=== PATIENT | female | born 1995 | race Caucasian/White ===

== ENCOUNTER 2018-08-21 20:42 | Emergency (ER) | payer SELFPAY ==
[2018-08-21 22:10] VITALS: BP 116/76
[2018-08-21 23:01] LABS: Hematocrit 41.6 % (30.3-42.9); Lymphocytes % (Auto) 31.8 % (13.4-35.0); Mean Corpuscular HGB Conc 34 % (30-34); Mean Corpuscular Hemoglobin 30 pg (28-32); Mean Corpuscular Volume 89 fl (79-97); Mean Platelet Volume 7.2 fl (6-12); Monocytes % (Auto) 6.5 % (0.0-7.3); Platelet Count 393 K/mm3 (140-440); Red Blood Count 4.67 M/mm3 (3.65-5.03); Red Cell Distribution Width 14.7 % (13.2-15.2)
[2018-08-21 23:02] LABS: Basophils % (Auto) 0.6 % (0.0-1.8); Eosinophils % (Auto) 0.3 % (0.0-4.3); Lymphocytes # (Auto) 1.8 K/mm3 (1.2-5.4); Monocytes # (Auto) 0.4 K/mm3 (0.0-0.8)
[2018-08-21 23:05] LABS: Alanine Aminotransferase 15 units/L (7-56); Albumin 4.7 g/dL (3.9-5); BUN/Creatinine Ratio 20; Blood Urea Nitrogen 12 mg/dL (7-17); Calcium 9.4 mg/dL (8.4-10.2); Hemolysis Index 8
== END 2018-08-22 01:30 | disposition left against medical advice (07) ==
LOC: ED 20:42
DX: R42 Dizziness and giddiness (principal); Z53.21 Procedure and treatment not carried out due to patient leaving prior to being seen by health care provider
CPT/HCPCS: 36415; 80053; 84703; 85025; 93005; 93010

== ENCOUNTER 2019-08-07 22:32 | Outpatient (CLI) | payer MEDICAID ==
[2019-08-07] MEDS ORDERED: LACTATED RINGERS 1,000 ML IV ONE (22:44)
[2019-08-07 23:31] VITALS: BP 133/82
--- NOTE | 2019-08-08 01:03 | Ultrasound Report ---
ULTRASOUND OBSTETRIC LIMITED ULTRASOUND BIOPHYSICAL PROFILE INDICATION / CLINICAL INFORMATION: Premature leakage of fluid. Evaluate amniotic fluid index. COMPARISON: OB ultrasound from 07/20/2019. FINDINGS: BREATHING MOVEMENT = 2 GROSS BODY MOVEMENT = 2 TONE = 2 QUALITATIVE AMNIOTIC FLUID VOLUME = 2 TOTAL BIOPHYSICAL SCORE = 8/8 AMNIOTIC FLUID INDEX (cm) = 13.5 PRESENTATION: Cephalic. HEART RATE (beats per minute): 137 ADDITIONAL FINDINGS: None. IMPRESSION: 1. Biophysical Score = 8/8 2. Normal amniotic fluid index of 13.5 cm. Signer Name: Willis Callejas MD Signed: 08/08/2019 12:59 AM Workstation Name: [id number]
== END 2019-08-08 00:13 | disposition home or self-care (01) ==
LOC: TRG 22:32
PROVIDERS: ATTEND Obstetrics & Gynecology
DX: O42.913 Preterm premature rupture of membranes, unspecified as to length of time between rupture and onset of labor, third trimester (principal); O62.9 Abnormality of forces of labor, unspecified; Z3A.36 36 weeks gestation of pregnancy
CPT/HCPCS: 59025; 76815; 76819; 96360; J7120

== ENCOUNTER 2019-08-28 02:53 | Inpatient (IN) | payer MEDICAID ==
[2019-08-28] MEDS ORDERED: ePHEDrine SULFATE 50 MG/1 ML INJ IV PRN ×2 (03:19→05:54)
[2019-08-28] MEDS ORDERED: TERBUTALINE 1 MG/1 ML INJ IVP PRN (03:19)
[2019-08-28] MEDS ORDERED: TERBUTALINE 1 MG/1 ML INJ SUB-Q PRN (03:19)
[2019-08-28] MEDS ORDERED: BUTORPHANOL 2 MG/1 ML INJ IV PRN (03:19)
[2019-08-28] MEDS ORDERED: MINERAL OIL 30 ML ORAL LIQD PO PRN (03:19)
[2019-08-28] MEDS ORDERED: LIDOCAINE (2%) 20 MG/1 ML VIAL 20 ML MDV INFILTRATI ONE (03:19)
[2019-08-28] MEDS ORDERED: AMPICILLIN/NS 2 GM/100 ML 2 GM/100 ML BAG IV ONE (03:19)
[2019-08-28] MEDS ORDERED: OXYTOCIN 20 UNIT/1000ML DRIP 20 UNITS/1,000 ML BAG IV SCH ×2 (04:00→16:38)
[2019-08-28 04:06] LABS: Hematocrit 33.2 % (30.3-42.9); Hemoglobin 10.6 gm/dl (10.1-14.3); Mean Corpuscular HGB Conc 32 % (30-34); Mean Corpuscular Volume 78 fl (79-97); Platelet Count 364 K/mm3 (140-440); Red Blood Count 4.24 M/mm3 (3.65-5.03); Red Cell Distribution Width 15.3 % (13.2-15.2)
[2019-08-28] MEDS: LACTATED RINGERS 1,000 ML IV SCH ×2 (04:21→06:12)
[2019-08-28] MEDS ORDERED: NALOXONE 2 MG/2 ML INJ IV PRN (05:54)
--- NOTE | 2019-08-28 05:56 | Anesthesia Consultation ---
Anesthesia Consult and Med Hx Date of service: 08/28/19 - Airway Anesthetic Teeth Evaluation: Good ROM Head & Neck: Adequate Mental/Hyoid Distance: Adequate Mallampati Class: Class II Intubation Access Assessment: Probably Good - Pulmonary Exam CTA: Yes - Cardiac Exam Cardiac Exam: RRR - Pre-Operative Health Status ASA Pre-Surgery Classification: ASA2 Proposed Anesthetic Plan: Epidural - Pulmonary Hx Asthma: No COPD: No Hx Pneumonia: No - Cardiovascular System Hx Hypertension: No - Central Nervous System Hx Seizures: Yes (Since 12y/o on Keppra currently) Hx Psychiatric Problems: No - Endocrine Hx Renal Disease: No Hx End Stage Renal Disease: No Hx Hypothyroidism: No Hx Hyperthyroidism: No - Hematic Hx Anemia: Yes Hx Sickle Cell Disease: No - Other Systems Hx Alcohol Use: Yes
[2019-08-28] MEDS ORDERED: fentaNYL-BUPIV 2 MCG/ML-0.125% 200 MCG/100 ML BAG EPIDURAL SCH (06:00)
[2019-08-28] MEDS ORDERED: AMPICILLIN/NS 1 GM/50 ML 1 GM/50 ML BAG IV SCH (07:30)
[2019-08-28] MEDS ORDERED: OXYTOCIN DRIP 30 UNITS/500 ML BAG IV SCH (08:00)
[2019-08-28] MEDS ORDERED: SODIUM CHLORIDE 0.9% 500 ML 500 ML ONE (08:54)
--- NOTE | 2019-08-28 09:41 | History and Physical Report ---
History of Present Illness Date of examination: 08/28/19 Date of admission: 08/28/19 03:47 Chief complaint: contractions History of present illness: Pt is a 24 year old -AMrican SILVIA 08/30/19 at 39w5d who presents with regular painful contractions and cervical change from 1 to 3 cm during her evaluation in triage. She denies vaginal bleeding or leakage of fluid. She has had care at [facility] since 12 wks complicated by seizure disorder on Keppra 100mg daily, genital herpes without lesion or prodrome, Cystitis s/p treatment with negative test of cure, carpal tunnel syndrome s/p wrist splint on 06/06/19, trichmonoas s/p treatment. She is GBS positive. 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: herpes, trichomonas Family/Genetic History: none Social history: no significant social history - Obstetrical History Expected Date of Delivery: 08/30/19 Actual Gestation: 39 Week(s) 5 Day(s) : 2 Para: 0 Hx # Term Pregnancies: 0 Number of Pregnancies: 0 Spontaneous Abortions: 1 Induced : 0 Medications and Allergies Allergies Allergy/AdvReac Type Severity Reaction Status Date / Time No Known Allergies Allergy Verified 01/21/19 07:21 Home Medications Medication Instructions Recorded Confirmed Last Taken Type Folic Acid [Folvite] 1 tab PO DAILY 07/20/19 08/07/19 08/06/19 History Vit-Fe Fumar-FA [ 1 tab PO DAILY 07/20/19 08/07/19 08/06/19 History Vitamin] levETIRAcetam [Keppra TAB] 1 tab PO BID 07/20/19 08/07/19 08/07/19 History Active Meds: Active Medications Butorphanol Tartrate (Stadol) 2 mg IV Q2H PRN PRN Reason: Pain , Severe (7-10) Ephedrine Sulfate (Ephedrine Sulfate) 10 mg IV Q2M PRN PRN Reason: Hypotension Oxytocin/Sodium Chloride (Pitocin/Ns 20 Unit/1000ml Drip) 20 units in 1,000 mls @ 125 mls/hr IV DIRECT KALYAN Lactated Ringer's (Lactated Ringers) 1,000 mls @ 125 mls/hr IV DIRECT KALYAN Last Admin: 10/28/19 06:12 Dose: 125 mls/hr Documented by: Ampicillin Sodium (Ampicillin/Ns 1 Gm/50 Ml) 1 gm in 50 mls @ 100 mls/hr IV Q4HR KALYAN; Protocol Last Admin: 08/28/19 07:54 Dose: 100 mls/hr Documented by: Fentanyl/Bupivacaine/Sodium Chlor (Fentanyl-Bupiv 2 Mcg/Ml-0.125%) 200 mcg in 100 mls @ 12 mls/hr EPIDURAL TITR KALYAN; Protocol Last Admin: 08/28/19 06:45 Dose: 12 mls/hr Documented by: Oxytocin/Sodium Chloride (Pitocin/Ns 30 Unit/500ml) 30 units in 500 mls @ 4 mls/hr IV TITR KALYAN; Protocol Last Admin: 08/28/19 07:50 Dose: 4 ml/hr, 4 mls/hr Documented by: Sodium Chloride (Nacl 0.9% 1000 Ml) 1,000 mls @ 0 mls/hr VG DIRECT KALYAN Mineral Oil (Mineral Oil) 30 ml PO QHS PRN PRN Reason: Constipation Naloxone HCl (Naloxone) 0.2 mg IV Q5M PRN PRN Reason: Respiratory sedation Terbutaline Sulfate (Brethine) 0.25 mg SUB-Q ONCE PRN PRN Reason: Hyperstimulation/Hypertonicity Terbutaline Sulfate (Brethine) 0.25 mg IVP ONCE PRN PRN Reason: Hyperstimulation/Hypertonicity Review of Systems All systems: negative - Vital Signs Vital signs: Vital Signs Pulse BP 82 127/85 08/28/19 03:01 08/28/19 03:01 Temp Pulse Resp BP Pulse Ox 97.9 F 65 112/69 100 08/28/19 07:00 08/28/19 09:36 08/28/19 09:26 08/28/19 09:36 - Physical Exam Breasts: Positive: deferred Cardiovascular: Regular rate Lungs: Positive: Clear to auscultation Abdomen: Positive: soft (gravid ) Genitourinary (Female): Positive: normal external genitalia Uterus: Positive: enlarged (gravid ) Extremities: Positive: edema (trace) - Obstetrical FHR: category 2 Uterine Contraction Monitor Mode: External Cervical Dilatation: 4.5 Cervical Effacement Percentage: 100 station: -1 Uterine Contraction Pattern: Irregular Uterine Tone Measurement Phase: Resting Uterine Contraction Intensity: Moderate Results Result Diagrams: 08/28/19 03:47 Abnormal lab results 08/28/19 Range/Units 03:47 MCV 78 L (79-97) fl MCH 25 L (28-32) pg RDW 15.3 H (13.2-15.2) % All other labs normal. Assessment and Plan A: IUP at 39w5d Latent Labor Seizure Disorder H/o Trichomonas, treated GBS positive status P: Admit to labor and delivery AROM- clear fluid GBS prophylaxis with Ampicillin Routine intrapartum care
[2019-08-28] MEDS ORDERED: SODIUM CHLORIDE 0.9% 1000 ML 1,000 ML VG SCH (10:00)
--- NOTE | 2019-08-28 10:53 | Event Note ---
Date: 08/28/19 Pt withmultiple varoiable decels after AROM. Resuscitation given including oxygen per face mask, IV bolus, left laternal position and pitocin discontinued. IUPC placed and amnioinfusion started wtih resolution of variable decelerations. Closely monitor maternal and status. Hold Pitocin for 15 minutes , then restart.
--- NOTE | 2019-08-28 14:26 | Procedure Note ---
OB Delivery Note - Delivery Date of Delivery: 08/28/19 Surgeon: INOCENCIO AREVALO Estimated blood loss: other (400 mL) - Vaginal Delivery presentation: vertex Delivery position: OA Intrapartum events: PROM->1hr before delivery, meconium, decreased FHT variability, mult. late decelerations, mult.variable deceleratio Delivery induction: none Delivery augmentation: rupture of membranes, pitocin Delivery monitor: external FHT, internal uterine Route of delivery: vacuum extraction Indicators for instrumentation: nonreassuring FHR tracing Delivery placenta: spontaneous Delivery cord: nuchal cord, 3 umbilical vessels Episiotomy: midline Delivery laceration: vaginal side wall, other (Bilateral periurethral ) Delivery repair: vicryl Anesthesia: epidural Delivery comments: Pt progressed to complete/complete/+3 and head noted to be in DANNA position. FHTs decelerating to 90s with each contraction with delayed return to baseline. Midline episiotomy created. Kiwi vacuum placed and head delivered with 3 pulls, 1 pop corby. Nuchal cord doubly clamped and cut. Shoulders and body delivered without difficulty then handed to NICU and repsiratory staff in attendance. Terminal meconium. Cord blood collected. Placenta delivered spontaneously (3VC, intact). Vagina and perineum explored. Midline episiotomy repaired with 2-0 Vicryl in a standard fashion. Bilateral periurethral noted. Right side hemostatic. Left side repaired with 3-0 Vicryl in a running fashion. Vaginal sidewall laceration on left side repaired with figure of eights of 3-0 Vicryl. Hemostasis noted. EBL 400 mL. - A at 1 minute: 8 at 5 minutes: 9 Infant Gender: Female (2855g (6lb 5oz) at 1336 pm)
[2019-08-28] MEDS ORDERED: ACETAMINOPHEN 325 MG TAB PO PRN (16:38)
[2019-08-28] MEDS ORDERED: MAGNESIUM HYDROXIDE (MOM) ORAL LIQD UDC PO PRN (16:38)
[2019-08-28] MEDS ORDERED: LANOLIN/ZINC/DIMETHICONE (LANSINOH) 7 GM TP PRN ×2 (16:38)
[2019-08-28] MEDS ORDERED: WITCH HAZEL/ GLYCERIN PAD TP PRN (16:38)
[2019-08-28] MEDS ORDERED: BISACODYL 10 MG RECT SUPP PR PRN (16:38)
[2019-08-28] MEDS ORDERED: PROMETHAZINE 25 MG TAB PO PRN (16:38)
[2019-08-28] MEDS ORDERED: ONDANSETRON 4 MG/2 ML INJ IV PRN (16:38)
[2019-08-28] MEDS ORDERED: PROMETHAZINE 25 MG RECT SUPP PR PRN (16:38)
[2019-08-28] MEDS ORDERED: BENZOCAINE/MENTHOL 20/0.5% TOP SPRAY 56 GM TP PRN (16:38)
[2019-08-28] MEDS ORDERED: diphenhydrAMINE 25 MG CAP PO PRN (16:38)
[2019-08-28] MEDS: IBUPROFEN 600 MG TAB PO SCH (18:05)
[2019-08-28] MEDS: FERROUS SULFATE 325 MG TAB PO SCH (22:05)
[2019-08-29] MEDS: IBUPROFEN 600 MG TAB PO SCH ×4 (00:03→17:58)
[2019-08-29 03:21] LABS: Hematocrit 29.8 % (30.3-42.9); Hemoglobin 9.5 gm/dl (10.1-14.3)
[2019-08-29] MEDS ORDERED: TETANUS,DIPH,PERTUSS(ACELL) VACCINE 0.5 ML SYRINGE IM ONE (06:00)
[2019-08-29] MEDS ORDERED: MEASLES, MUMPS & RUBELLA 12,500 UNIT/0.5 ML VACCINE SUB-Q ONE (06:00)
--- NOTE | 2019-08-29 08:52 | Progress Note ---
Assessment and Plan A: PPD 1 s/p at term, Asymptomatic anemia, Seizure Disorder P: Routine care. Arise Vernon. Subjective - Subjective Date of service: 08/30/19 Principal diagnosis: s/p at term, Seizure Disorder Interval history: Pt reports cramping with breast feeding. Otherwise doing well. Patient reports: appetite normal, voiding normally, pain well controlled, no dizzy ambulation : doing well Objective - Vital Signs Latest vital signs: Vital Signs Temp Pulse Resp BP BP Pulse Ox 08/29/19 08:18 97.8 F 73 18 104/70 08/29/19 01:31 98.2 F 90 18 112/72 99 08/28/19 21:31 98.5 F 90 20 117/71 99 08/28/19 16:05 98.3 F 83 18 117/74 100 08/28/19 15:45 98.0 F 97 H 115/60 08/28/19 15:44 107 H 141/58 08/28/19 15:33 90 121/76 08/28/19 15:23 93 H 121/73 08/28/19 15:13 91 H 122/75 08/28/19 15:03 81 122/74 08/28/19 14:43 77 130/83 08/28/19 14:26 81 119/70 08/28/19 14:00 98.4 F 08/28/19 13:56 100 H 121/70 08/28/19 13:26 83 121/59 08/28/19 13:12 78 100 08/28/19 13:07 86 100 08/28/19 13:05 98.4 F 08/28/19 13:02 85 99 08/28/19 12:57 83 99 08/28/19 12:56 76 116/76 08/28/19 12:52 83 99 08/28/19 12:47 81 99 08/28/19 12:42 85 98 08/28/19 12:37 75 98 08/28/19 12:32 74 100 08/28/19 12:27 86 113/75 98 08/28/19 12:22 81 97 08/28/19 12:17 63 99 08/28/19 12:12 59 L 100 08/28/19 12:07 70 100 08/28/19 12:02 64 100 08/28/19 11:57 56 L 115/66 100 08/28/19 11:52 59 L 100 08/28/19 11:47 62 100 08/28/19 11:42 68 97 08/28/19 11:37 66 97 08/28/19 11:32 63 97 08/28/19 11:27 69 98 08/28/19 11:26 67 119/74 08/28/19 11:22 76 98 08/28/19 11:17 73 100 08/28/19 11:12 77 99 08/28/19 11:07 91 H 98 08/28/19 11:02 76 99 08/28/19 10:57 73 98 08/28/19 10:56 78 112/66 08/28/19 10:52 72 98 08/28/19 10:47 74 99 08/28/19 10:42 80 98 08/28/19 10:37 81 98 08/28/19 10:32 73 99 08/28/19 10:27 77 98 08/28/19 10:26 85 127/89 08/28/19 10:22 75 99 08/28/19 10:17 72 99 08/28/19 10:12 73 98 08/28/19 10:07 60 100 08/28/19 10:02 59 L 100 08/28/19 09:57 60 110/58 100 08/28/19 09:51 58 L 100 08/28/19 09:46 60 100 08/28/19 09:41 61 100 08/28/19 09:36 65 100 08/28/19 09:31 64 100 08/28/19 09:26 60 112/69 100 08/28/19 09:21 61 100 08/28/19 09:16 63 100 08/28/19 09:11 60 100 08/28/19 09:06 63 100 08/28/19 09:01 61 100 08/28/19 08:57 71 120/66 08/28/19 08:56 69 100 Intake and Output 08/28/19 08/29/19 08/29/19 22:59 06:59 14:59 Intake Total 360 600 480 Output Total 500 500 Balance -140 100 480 Intake: Oral 600 480 Intake, Free Water 360 Output: Urine 500 500 Void 500 500 Other: Total, Intake Amount 240 480 Total, Output Amount 500 500 - Exam Breasts: Present: deferred Cardiovascular: Present: Regular rate Lungs: Present: Clear to auscultation Abdomen: Present: soft Uterus: Present: fundal height at umbilicus Extremities: Present: edema (trace) - Labs Labs: Abnormal lab results 08/29/19 Range/Units 03:00 Hgb 9.5 L (10.1-14.3) gm/dl Hct 29.8 L (30.3-42.9) %
[2019-08-29] MEDS: HYDROcodone/ACETAMINOPHEN 5-325 MG TAB PO PRN ×2 (09:10→19:16)
[2019-08-29] MEDS: FERROUS SULFATE 325 MG TAB PO SCH (09:11)
[2019-08-29] MEDS ORDERED: metroNIDAZOLE 500 MG TAB PO ONE (11:00)
[2019-08-29] MEDS: levETIRAcetam 500 MG TAB PO SCH ×2 (12:01→23:59)
[2019-08-29] MEDS ORDERED: levETIRAcetam 500 MG/5 ML ORAL LIQD PO SCH (22:00)
[2019-08-30] MEDS: IBUPROFEN 600 MG TAB PO SCH ×2 (00:01→06:10)
[2019-08-30] MEDS: FERROUS SULFATE 325 MG TAB PO SCH (00:02)
--- NOTE | 2019-08-30 05:21 | Event Note ---
Date: 08/30/19 Late entry. Vaginal culture from the office returned with trichomonas. Flagyl 2 gram PO ordered.
--- NOTE | 2019-08-30 08:38 | Progress Note ---
Assessment and Plan PPD2 s/p Seizure disorder Vital signs stable Acute on chronic anemia- iron supplementation Discharge to home today Subjective - Subjective Date of service: 08/30/19 Principal diagnosis: s/p at term, Seizure Disorder Interval history: PPD2 s/p at term. Patient reports: appetite normal, voiding normally, pain well controlled, ambulating normally [place]: doing well, nursing well (nipples sore), bottle feeding (both) Objective - Vital Signs Latest vital signs: Vital Signs Temp Pulse Resp BP 08/30/19 00:00 98.8 F 18 L 18 117/71 08/29/19 16:20 97.9 F 80 18 110/59 08/29/19 12:26 97.6 F 69 18 117/80 Intake and Output 08/29/19 08/30/19 08/30/19 23:59 07:59 15:59 Intake Total 480 300 Balance 480 300 Intake: Oral 480 Intake, Free Water 300 Other: Total, Intake Amount 480 # Voids Void 1 - Exam Lungs: Present: Normal air movement Abdomen: Present: normal appearance, soft Uterus: Present: normal, firm, fundal height at umbilicus Extremities: Present: normal Incision: Present: normal
--- NOTE | 2019-08-30 08:42 | Discharge Summary ---
Providers - Providers Date of Admission: 08/28/19 03:47 Date of discharge: 08/30/19 Attending physician: INOCENCIO AREVALO Primary care physician: INOCENCIO AREVALO Hospitalization Reason for admission: active labor Delivery: vacuum extraction Episiotomy: midline Laceration: vaginal side wall, other (bilateral periurethral) Other procedures: none complications: none Discharge diagnosis: IUP at term delivered Hospital course: Pt arrived in active labor. Progressed to complete and pushing. Vacuum assisted vaginal delivery with episiotomy. Treated for Trichomonas in hospital after culture from the office was positive. Rest of course was uneventful. Disposition: DC-30 STILL A PATIENT Plan - Provider Discharge Summary Activity: routine, no sex for 6 weeks, no heavy lifting 4 weeks, no strenuous exercise Diet: routine Instructions: routine Additional instructions: [] Smoking cessation referral if applicable(refer to patient education folder for contact #) [] Refer to [facility] Booklet Call your doctor immediately for: * Fever > 100.5 * Heavy vaginal bleeding ( >1 pad per hour) * Severe persistent headache * Shortness of breath * Reddened, hot, painful area to leg or breast * Drainage or odor from incision. * Keep incision clean and dry at all times and follow doctor's instructions regarding bathing/showering - Follow up plan Follow up: INOCENCIO AREVALO MD [Primary Care Provider] - 14 Days (Please call [facility] to schedule a appointment.)
[2019-08-30 09:01] VITALS: BP 105/46
== END 2019-08-30 10:35 | disposition home or self-care (01) | DRG 774 ==
LOC: TRG 02:53 → LD 03:47 → OB 16:28
PROVIDERS: ADMIT Obstetrics & Gynecology; ATTEND Obstetrics & Gynecology
PROC: 10D07Z6 Extraction of Products of Conception, Vacuum, Via Natural or Artificial Opening (ICD-10-PCS; principal; 2019-08-28)
PROC: 0W8NXZZ Division of Female Perineum, External Approach (ICD-10-PCS; 2019-08-28)
PROC: 0UQGXZZ Repair Vagina, External Approach (ICD-10-PCS; 2019-08-28)
PROC: 3E0R3BZ Introduction of Anesthetic Agent into Spinal Canal, Percutaneous Approach (ICD-10-PCS; 2019-08-28)
PROC: 00HU33Z Insertion of Infusion Device into Spinal Canal, Percutaneous Approach (ICD-10-PCS; 2019-08-28)
PROC: 10907ZC Drainage of Amniotic Fluid, Therapeutic from Products of Conception, Via Natural or Artificial Opening (ICD-10-PCS; 2019-08-28)
PROC: 10H07YZ Insertion of Other Device into Products of Conception, Via Natural or Artificial Opening (ICD-10-PCS; 2019-08-28)
PROC: 3E0234Z Introduction of Serum, Toxoid and Vaccine into Muscle, Percutaneous Approach (ICD-10-PCS; 2019-08-29)
DX: O42.92 Full-term premature rupture of membranes, unspecified as to length of time between rupture and onset of labor (principal); O98.313 Other infections with a predominantly sexual mode of transmission complicating pregnancy, third trimester; O77.0 Labor and delivery complicated by meconium in amniotic fluid; O76 Abnormality in fetal heart rate and rhythm complicating labor and delivery; O69.81X0 Labor and delivery complicated by cord around neck, without compression, not applicable or unspecified; O99.824 Streptococcus B carrier state complicating childbirth; O99.314 Alcohol use complicating childbirth; A59.01 Trichomonal vulvovaginitis; O99.354 Diseases of the nervous system complicating childbirth; G40.909 Epilepsy, unspecified, not intractable, without status epilepticus; O99.02 Anemia complicating childbirth; D64.9 Anemia, unspecified; O71.4 Obstetric high vaginal laceration alone; Z3A.39 39 weeks gestation of pregnancy; Z37.0 Single live birth; Z23 Encounter for immunization
CPT/HCPCS: 36415; 85014; 85018; 85027; 86850; 86900; 86901; G0378; J0290; J2590; J7040; J7120

== ENCOUNTER 2019-09-21 06:34 | Emergency (ER) | payer MEDICAID ==
[2019-09-21 06:55] VITALS: BP 94/51
--- NOTE | 2019-09-21 08:37 | Emergency Department Report ---
ED Abdominal Pain HPI - General Chief Complaint: Abdominal Pain Stated Complaint: ABDOMINAL PAIN Time Seen by Provider: 09/21/19 08:28 Source: patient, EMS Mode of arrival: Stretcher Limitations: No Limitations - History of Present Illness MD Complaint: abdominal pain -: Sudden Severity scale (0 -10): 10 Quality: stabbing Consistency: constant Improves With: rest Worsens With: movement - Related Data Home Medications Medication Instructions Recorded Confirmed Last Taken Folic Acid [Folvite] 1 tab PO DAILY 07/20/19 08/07/19 08/06/19 Vit-Fe Fumar-FA [ 1 tab PO DAILY 07/20/19 08/29/19 08/29/19 12:00 Vitamin] levETIRAcetam [Keppra TAB] 1 tab PO BID 07/20/19 08/29/19 08/29/19 12:00 1000 mg Previous Rx's Medication Instructions Recorded Last Taken Type Docusate Sodium [Colace] 100 mg PO BID PRN #60 capsule 08/30/19 Unknown Rx Ferrous Sulfate [Ferrous Sulfate 324 mg PO BID #60 tablet.dr 08/30/19 Unknown Rx 324 MG] Ibuprofen [Motrin] 600 mg PO Q6H PRN #60 tablet 08/30/19 Unknown Rx Allergies Allergy/AdvReac Type Severity Reaction Status Date / Time No Known Allergies Allergy Verified 01/21/19 07:21 ED Review of Systems ROS: Stated complaint: ABDOMINAL PAIN Other details as noted in HPI ED Past Medical Hx - Past Medical History Previous Medical History?: Yes Hx Hypertension: No Hx Congestive Heart Failure: No Hx Diabetes: No Hx Deep Vein Thrombosis: No Hx Renal Disease: No Hx Sickle Cell Disease: No Hx Seizures: Yes (Since 12y/o on Keppra currently) Hx Asthma: No Hx COPD: No Hx HIV: No - Surgical History Past Surgical History?: No - Social History Smoking Status: Never Smoker Substance Use Type: None - Medications Home Medications: Home Medications Medication Instructions Recorded Confirmed Last Taken Type Folic Acid [Folvite] 1 tab PO DAILY 07/20/19 08/07/19 08/06/19 History Vit-Fe Fumar-FA [ 1 tab PO DAILY 07/20/19 08/29/19 08/29/19 12:00 History Vitamin] levETIRAcetam [Keppra TAB] 1 tab PO BID 07/20/19 08/29/19 08/29/19 12:00 History 1000 mg Docusate Sodium [Colace] 100 mg PO BID PRN #60 capsule 08/30/19 Unknown Rx Ferrous Sulfate [Ferrous Sulfate 324 mg PO BID #60 tablet.dr 08/30/19 Unknown Rx 324 MG] Ibuprofen [Motrin] 600 mg PO Q6H PRN #60 tablet 08/30/19 Unknown Rx ED Physical Exam - General Limitations: No Limitations ED Course Vital Signs 09/21/19 06:45 Temperature 97.9 F Pulse Rate 74 Respiratory 21 Rate Blood Pressure 94/51 Blood Pressure 94/51 [Left] O2 Sat by Pulse 21 L Oximetry Critical care attestation.: If time is entered above; I have spent that time in minutes in the direct care of this critically ill patient, excluding procedure time. ED Disposition Condition: Stable Instructions: Abdominal Pain (ED) Referrals: PRIMARY CARE, [Primary Care Provider] - 3-5 Days
== END 2019-09-21 08:30 | disposition left against medical advice (07) ==
LOC: ED 06:34
DX: R10.9 Unspecified abdominal pain (principal); Z53.21 Procedure and treatment not carried out due to patient leaving prior to being seen by health care provider

== ENCOUNTER 2019-09-23 05:07 | Emergency (ER) | payer MEDICAID ==
[2019-09-23 05:15] VITALS: BP 122/55
--- NOTE | 2019-09-23 05:45 | XRay Report ---
CHEST 1 VIEW, 09/23/2019 5:18 AM CLINICAL INFORMATION/INDICATION: Chest pain COMPARISON: None FINDINGS: SUPPORT DEVICES: None. HEART: Cardiac silhouette and pulmonary vascularity are within normal limits LUNGS/PLEURA: There is no focal airspace disease or significant pleural effusion ADDITIONAL FINDINGS: No additional acute findings. IMPRESSION: 1. No evidence of acute cardiopulmonary process. Signer Name: Elva Ingram MD Signed: 09/23/2019 5:41 AM Workstation Name: [id number]
== END 2019-09-23 06:15 | disposition left against medical advice (07) ==
LOC: ED 05:07
DX: R07.89 Other chest pain (principal); Z53.21 Procedure and treatment not carried out due to patient leaving prior to being seen by health care provider
CPT/HCPCS: 71045; 93005; 93010